=== PATIENT | female | born 1990 | race Caucasian/White ===

== ENCOUNTER 2020-01-03 14:40 | Emergency (ER) | payer MEDICAID ==
[~2020-01-03] VITALS: Ht 175.3 cm; Wt 99.7 kg
[2020-01-03 15:04] VITALS: BP 109/63
--- NOTE | 2020-01-03 16:16 | NUR ---
INSULATION CUTTER: PT CALLED FOR PT. PT NOT IN LOBBY.
--- NOTE | 2020-01-03 16:34 | NUR ---
DIRECTOR OF LABOR AND DELIVERY: CALLED FOR PT. PT NOT IN LOBBY AT THIS TIME.
--- NOTE | 2020-01-03 16:56 | NUR ---
TYRE FITTER: CALLED FOR PT. PT NOT IN LOBBY. PT DID NOT NOTIFY ANY STAFF PRIOR TO ELOPING.
== END 2020-01-03 16:58 | disposition left against medical advice (07) ==
LOC: ED 16:52
DX: M79.662 Pain in left lower leg (principal); M79.89 Other specified soft tissue disorders; Z86.718 Personal history of other venous thrombosis and embolism
CPT/HCPCS: 99281